=== PATIENT | female | born 1985 | race Caucasian/White ===

== ENCOUNTER 2016-11-26 08:53 | Emergency (ER) | payer OTHER ==
[~2016-11-26] VITALS: Ht 167.6 cm; Wt 112.6 kg
[~2016-11-26 08:53] MED LIST: ATARAX,VISTARIL25 MG PO; BENADRYL ALLERG25 MG PO; BENADRYL25 MG PO; CEPACOL SORE T1 EAC9 MM; CHLORASEPTIC; CLINDAMYCIN HC150 MG PO; CLOTRIMAZOLE; EPIPEN ADU0.3 MG/0.3 IM; FLEXERIL10 MG PO; FLEXERIL5 MG PO; FLONASE16 G1 BOTH NARES; GLYBURIDE2.5 MG PO; IBUPROFEN600 MG PO; KLONOPIN0.5 M1 PO; MOTRIN800 MG PO; NAPROSYN500 MG PO; NORA-BE0.35 MG PO; NORCO 5/3251 TABLET PO; ONCE DAILY1 EACH PO; PEPCID COMPLET1 EACH PO; PEPCID20 MG PO; PERCOCET 5/31 TABLET PO; PREDNISONE10 MG PO; PREDNISONE50 MG PO; PRENATAL TABLE1 EAC3 PO; PROVENTIL,200 INHALA IH; SYMBICORT60 INHALAT IH; TYLENOL EXTRA500 MG PO; ULTRAM50 MG PO; [UNRECOGNIZED DRUG - OTHER]; ivermectin
[2016-11-26] MEDS ORDERED: PREDNISONE50 MG PO (09:37)
[2016-11-26 10:01] VITALS: BP 121/67
== END 2016-11-26 10:03 | disposition home or self-care (01) ==
LOC: EME 08:53
DX: J32.9 Chronic sinusitis, unspecified (principal); Z88.0 Allergy status to penicillin
CPT/HCPCS: 99281; 99283

== ENCOUNTER 2017-10-25 07:42 | Emergency (ER) | payer OTHER ==
[~2017-10-25] VITALS: Ht 167.6 cm; Wt 110.5 kg
[2017-10-25 08:43] LABS: APPEARANCE CLOUDY ((CLEAR)); BILIRUBIN NEGATIVE; BLOOD SMALL; COLOR YELLOW ((YELLOW)); GLUCOSE (STRIP) NEGATIVE; KETONES NEGATIVE; LEUKOCYTES MODERATE; NITRITE NEGATIVE; PROTEIN (STRIP) NEGATIVE; SPECIFIC GRAVITY 1.017 (1.000-1.030); UROBILINOGEN 0.2 MG/DL (0.2-1.0)
[2017-10-25 08:52] LABS: BASOPHIL (%) 0.9 % (0-1); BASOPHIL COUNT 0.1 K/uL (0-0.1); EOSINOPHIL (%) 4.6 % (0-5); EOSINOPHIL COUNT 0.3 K/uL (0-0.3); HEMATOCRIT 38.5 % (36.0-46.0); HEMOGLOBIN 13.4 G/DL (11.9-15.5); IMMATURE GRANULOCYTE (%) 0.4 % (0.0-0.7); LYMPHOCYTE (%) 28.7 % (15-42); LYMPHOCYTE COUNT 1.6 K/uL (1.0-2.8); MCH 29.9 PG (29.0-34.0); MCHC 34.8 G/DL (30.0-36.0); MCV 85.9 FL (83-99); MONOCYTE (%) 8.7 % (3-12); MONOCYTE COUNT 0.5 K/uL (0-0.8); NEUTROPHIL (%) 56.7 % (45-76); NEUTROPHIL COUNT 3.1 K/uL (1.8-6.4); PLATELET COUNT 216 K/uL (156-360); RBC DIS.WIDTH-CV 12.1 % (11.8-14.6); RED BLOOD COUNT 4.48 M/uL (3.80-5.20); WHITE BLOOD COUNT 5.4 K/uL (4.1-10.2)
[2017-10-25 08:54] LABS: BACTERIA RARE /HPF; EPITHELIAL CELLS 3+ /HPF; MUCUS TRACE /LPF; RED BLOOD CELLS 0-5 /HPF (0-5); UCUL ADDED? YES
[2017-10-25 09:15] LABS: CHLORIDE 106 MEQ/L (99-109); POTASSIUM 3.9 MEQ/L (3.7-5.4); SODIUM 138 MEQ/L (136-147)
[2017-10-25 09:20] LABS: CREATININE 0.8 MG/DL (0.6-1.3); GFR ESTIMATE (CALCULATED) > 59 mL/min/; GLUCOSE 96 mg/dL (70-99); UREA NITROGEN (BUN) 9 mg/dL (9-23)
[2017-10-25] MEDS ORDERED: ZOFRAN4 MG PO (10:19)
[2017-10-25] MEDS ORDERED: FLAGYL500 MG PO (10:19)
[2017-10-25] MEDS ORDERED: CIPRO500 MG PO (10:19)
[2017-10-25] MEDS ORDERED: PERCOCET 5/31 TABLET PO (10:19)
[2017-10-25 10:32] VITALS: BP 111/60
== END 2017-10-25 10:33 | disposition home or self-care (01) ==
LOC: EME 07:42
PROVIDERS: Emergency Medicine
DX: K52.9 Noninfective gastroenteritis and colitis, unspecified (principal); R10.9 Unspecified abdominal pain; R07.9 Chest pain, unspecified; M54.9 Dorsalgia, unspecified; K76.0 Fatty (change of) liver, not elsewhere classified; K42.9 Umbilical hernia without obstruction or gangrene; Z90.49 Acquired absence of other specified parts of digestive tract; I49.8 Other specified cardiac arrhythmias
CPT/HCPCS: 74176; 80048; 81003; 81025; 85025; 87086; 93005; 99281; 99285; J2405; J3010; J7030

== ENCOUNTER 2017-11-14 09:45 | Day surgery (SDC) | payer OTHER ==
[~2017-11-14] VITALS: Ht 167.6 cm; Wt 110.7 kg
[~2017-11-14 09:45] MED LIST changes: +CINNAMON500 MG PO; +CIPRO500 MG PO; +DUEXIS 800-26.1 EACH PO; +FLAGYL500 MG PO; +GINGER250 MG PO; +NEXPLANON68 MG SC; +ONE DAILY WOME1 EACH PO; +ZOFRAN4 MG PO
[2017-11-14 10:25] VITALS: BP 111/71
[2017-11-14 15:51] VITALS: BP 116/76
[2017-11-14 20:04] VITALS: BP 118/72
[2017-11-15 00:31] VITALS: BP 124/77
[2017-11-15 04:15] VITALS: BP 125/72
[2017-11-15 08:11] VITALS: BP 123/77
[2017-11-15 11:45] VITALS: BP 128/80
[2017-11-15] MEDS ORDERED: ENDOCET 5-3251 EACH PO (11:57)
== END 2017-11-15 13:12 | disposition home or self-care (01) ==
LOC: SDC 09:45 → 2SOUTH 14:01 → 2EAST 14:01 → ENRESERV 14:21 → 2EAST 15:28
PROC: 0WUF4JZ Supplement Abdominal Wall with Synthetic Substitute, Percutaneous Endoscopic Approach (ICD-10-PCS; principal; 2017-11-14)
DX: K42.0 Umbilical hernia with obstruction, without gangrene (principal); J45.909 Unspecified asthma, uncomplicated; K21.9 Gastro-esophageal reflux disease without esophagitis; Z88.6 Allergy status to analgesic agent; Z88.1 Allergy status to other antibiotic agents; Z88.0 Allergy status to penicillin; Z88.8 Allergy status to other drugs, medicaments and biological substances; Z91.018 Allergy to other foods
CPT/HCPCS: C1781; G0378; J0131; J1100; J1170; J1650; J1885; J2250; J2405; J3010; J7120